=== PATIENT | female | born 1940 | race Caucasian/White ===

== ENCOUNTER 2022-06-15 13:41 | Observation (INO) | payer MEDICARE ==
[2022-06-15] MEDS ORDERED: KETOROLAC 15 MG/ML 1 ML VIAL IM STA (14:01)
--- NOTE | 2022-06-15 14:08 | ED ---
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 She is complaining of left hip and low back pain. Denies hitting her head or any other injuries. 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 Witnessed: no Place Fall Occurred: home Loss of Consciousness: none Prolonged Down Time?: no Symptoms Prior to Fall: none Location: back (lower), other (left hip) Severity scale (1-10): 6 Context: tripped/slipped Associated Symptoms: denies - Related Data Home Medications Medication Instructions Recorded Confirmed Alendronate Sodium [Fosamax] 35 mg PO FR 06/15/22 06/15/22 Aspirin EC [Ecotrin Low Dose] 81 mg PO HS 06/15/22 06/15/22 Cholecalciferol [Vitamin D3 (25 50 mcg PO HS 06/15/22 06/15/22 Mcg = 1000 Iu)] Cyanocobalamin (Vitamin B-12) 1,000 mcg PO HS 06/15/22 06/15/22 [Vitamin B-12] Dulaglutide [Trulicity] 3 mg SQ ARTHUR 06/15/22 06/15/22 Insulin Glargine,Hum.rec.anlog 10 units SQ HS 06/15/22 06/15/22 [Lantus Solostar Pen] Latanoprost/Pf [Latanoprost 0.005% 1 drop BOTH EYES HS 06/15/22 06/15/22 Eye Drop] Losartan Potassium [Cozaar] 50 mg PO DAILY 06/15/22 06/15/22 Metoprolol Succinate (ER) [Toprol 25 mg PO DAILY 06/15/22 06/15/22 Xl] Simvastatin [Zocor] 40 mg PO HS 06/15/22 06/15/22 Vit C/E/Zn/Coppr/Lutein/Zeaxan 1 cap PO BID 06/15/22 06/15/22 [Preservision Areds 2 Softgel] glipiZIDE [Glucotrol] 10 mg PO BID 06/15/22 06/15/22 ursodioL [Ursodiol] 500 mg PO HS 06/15/22 06/15/22 ursodioL [Ursodiol] 750 mg PO DAILY 06/15/22 06/15/22 Previous Rx's Medication Instructions Recorded Lidocaine 5% Patch [Lidoderm] 1 patch TOPICAL DAILY PRN 14 Days 06/15/22 #14 patch Allergies Allergy/AdvReac Type Severity Reaction Status Date / Time kiwi Allergy Itching Verified 06/15/22 17:15 ciprofloxacin [From Cipro] AdvReac Nausea Verified 06/15/22 17:15 Review of Systems ROS Statement: Those systems with pertinent positive or pertinent negative responses have been documented in the HPI. ROS Other: All systems not noted in ROS Statement are negative. Past Medical History Past Medical History: Diabetes Mellitus History of Any Multi-Drug Resistant Organisms: None Reported Past Surgical History: Tonsillectomy Smoking Status: Former smoker Past Alcohol Use History: None Reported Past Drug Use History: None Reported General Exam Limitations: no limitations General appearance: alert, in no apparent distress Head exam: Present: atraumatic, normocephalic, normal inspection Eye exam: Absent: scleral icterus, conjunctival injection, periorbital swelling, periorbital tenderness ENT exam: Present: mucous membranes moist Neck exam: Present: full ROM. Absent: tenderness, meningismus Respiratory exam: Absent: respiratory distress, accessory muscle use Cardiovascular Exam: Present: regular rate GI/Abdominal exam: Present: soft. Absent: distended, tenderness, guarding, rebound, rigid Extremities exam: Present: normal capillary refill. Absent: pedal edema, calf tenderness Left Hip exam: Present: tenderness. Absent: swelling, ecchymosis, deformity, crepitus, external rotation, internal rotation, shortening, pelvic stability Upper Leg exam: Present: full ROM. Absent: tenderness, swelling Knee exam: Present: full knee extension. Absent: tenderness, deformity Lower Leg exam: Present: full ROM. Absent: tenderness, swelling Foot/Toe exam: Absent: tenderness, swelling Neurovascular tendon exam: Present: no vascular compromise. Absent: abnormal cap refill, extremity cold to touch, pallor, foot drop Right Hip exam: Absent: tenderness Upper Leg exam: Absent: tenderness Knee exam: Present: ecchymosis, full knee extension. Absent: tenderness, swelling Lower Leg exam: Present: normal inspection. Absent: tenderness Ankle exam: Absent: tenderness Foot/Toe exam: Absent: tenderness Neurovascular tendon exam: Present: no vascular compromise. Absent: extremity cold to touch, pallor, foot drop Gait: observed and limited by pain Back exam: Present: tenderness, paraspinal tenderness (Lumbar sacral). Absent: CVA tenderness (R), CVA tenderness (L), vertebral tenderness, rash noted Neurological exam: Present: alert, oriented X3 Psychiatric exam: Present: normal affect, normal mood Skin exam: Present: warm, dry, abrasion (First 3 fingers of right hand, small abrasions) Course Vital Signs 06/15/22 06/15/22 13:45 16:31 Temperature 97 F L Pulse Rate 70 76 Respiratory 18 18 Rate Blood Pressure 153/77 173/75 O2 Sat by Pulse 94 L 94 L Oximetry Medical Decision Making - Medical Decision Making Patient had a ground level fall at home today landing on her left hip. Denies any other injuries. Did not hit her head or lose consciousness. She is not on blood thinners. X-ray of the left hip and pelvis shows no acute fracture or dislocation. X-ray of the lumbar sacral spine shows no acute fracture or dislocation. Vertebral body height and disc space heights are within normal limits. EKG shows sinus rhythm Patient tried to ambulate and states increased pain with weight bearing. Complaining of pain in the left groin and hip therefore CT was ordered. CT performed which shows a mildly displaced comminuted fracture of the left inferior pubic ramus Case discussed with Dr. Yee who is agreeable to admitting patient. Medicine will be placed on consult. Patient and daughter Zoraida agreeable to this plan of care. Case discussed with Dr. Contreras - EKG Data EKG shows normal: sinus rhythm (Ventricular rate 72, IL interval 0.181, QRS 0.97, QTC 0.450; sinus rhythm; no t wave inversion) Disposition Clinical Impression: Fall, Inferior pubic ramus fracture Disposition: ADMITTED IP TO THIS HOSP Additional Instructions: Use Tylenol as needed for any pain, you can also uses Lidoderm patches as prescribed. Follow-up with the primary care doctor next week. Return to emergency room if any new or concerning symptoms. Prescriptions: Lidocaine 5% Patch [Lidoderm] 1 patch TOPICAL DAILY PRN 14 Days #14 patch PRN Reason: Pain Is patient prescribed a controlled substance at d/c from ED?: No Referrals: Nonstaff,Physician [REFERRING] - 1-2 days Decision Time: 17:01
--- NOTE | 2022-06-15 14:58 | XR ---
EXAMINATION TYPE: XR lumbar spine 2 or 3V DATE OF EXAM: 06/15/2022 CLINICAL HISTORY: Fall injury with pain TECHNIQUE: Frontal and lateral images of the lumbar spine are obtained. COMPARISON: None FINDINGS: There are 5 lumbar type vertebral bodies identified. The lumbar spine shows slight grade 1 anterolisthesis of L4 on L5 without evidence of acute fracture or dislocation. Vertebral body heigh ts and disk space heights are within normal limits. Moderate overlying arterial vascular calcificatio n is present. IMPRESSION: No acute fracture or dislocation is seen in the lumbar spine.
--- NOTE | 2022-06-15 15:00 | XR ---
EXAMINATION TYPE: XR Hip LT and AP Pelvis DATE OF EXAM: 06/15/2022 COMPARISON: NONE HISTORY: Fall injury with pelvic and left hip pain. TECHNIQUE: A single AP view of the pelvis is obtained. Two views of the left hip are obtained. FINDINGS: There is no acute fracture/dislocation evident in the pelvis. There is moderate axial join t space loss in the bilateral hips. Sacroiliac joints are preserved. No abnormal widening of the pubi c symphysis, there is bony prominence could reflect atelectatic old fracture involving the left pubic bone as no lucency identified at this level. Scattered bilateral pelvic phleboliths are seen. Two views of left hip show no acute fracture or dislocation. No focal lytic or sclerotic lesion seen in the proximal left femur. The overlying soft tissue is unremarkable. IMPRESSION: There is no acute fracture or dislocation in the pelvis or left hip.
[2022-06-15] MEDS ORDERED: HYDROcodone/APAP 5-325MG 1 EACH TAB PO STA (15:57)
[2022-06-15] MEDS: LIDOCAINE 5% PATCH TOPICAL SCH (16:25)
--- NOTE | 2022-06-15 16:44 | CT ---
EXAMINATION TYPE: CT pelvis wo con, CT hip LT wo con CT DLP: 511.1 mGycm, Automated exposure control for dose reduction was used. DATE OF EXAM: 06/15/2022 4:29 PM COMPARISON: Left hip and pelvic radiographs of the same date. CLINICAL INDICATION:Female, 82 years old with history of pain; fall left hip pian TECHNIQUE: Standard CT of the pelvis and left hip without IV or oral contrast. Lack of IV or oral c ontrast limits evaluation of solid and hollow organ viscera. Coronal and sagittal reformats were perf ormed. FINDINGS: PELVIS BLADDER: Unremarkable REPRODUCTIVE: Unremarkable. BOWEL: Few scattered colonic diverticula without evidence for acute diverticulitis. No focal wall thi ckening. No evidence of bowel obstruction. PERITONEUM: No evidence of pneumoperitoneum or free fluid. VASCULATURE: No evidence of aortic aneurysm. Mild atherosclerotic ossification of the aorta and its b ranches. MUSCULOSKELETAL: Mildly displaced comminuted fracture of the left inferior pubic ramus. No evidence f or dislocation. No joint effusion. SI joints. Tach. LYMPH NODES: No gross evidence for lymphadenopathy. SOFT TISSUE/ABDOMINAL WALL: Unremarkable IMPRESSION: Acute mildly displaced comminuted fracture of the left inferior pubic ramus.
[2022-06-15] MEDS ORDERED: ACETAMINOPHEN TAB 325 MG TAB PO PRN (17:06)
[2022-06-15] MEDS ORDERED: NALOXONE 0.4 MG/ML 1 ML VIAL IV PRN (17:06)
--- NOTE | 2022-06-15 17:14 | P.PN ---
Progress Note - Text Progress Note Date: 06/15/22 Spoke with ED, per report 82 yo female sustained ffs at home. Full consult pending. Can not reasonably ambulate due to pubic rami fracture. Images reviewed CT shows left inf pubic rami fracture with min displacement. Will admit for obs and pain control. Medicine to consult. PT/OT. Start DVT ppx. SCDs, TEDs.
[2022-06-15] MEDS: ASPIRIN 81 MG PO SCH (22:24)
[2022-06-15] MEDS: CHOLECALCIFEROL 25 MCG (1000 IU) TABLET PO SCH (22:24)
[2022-06-15] MEDS: ATORVASTATIN 20 MG TAB PO SCH (22:24)
[2022-06-15] MEDS: INSULIN DETEMIR (LEVEMIR) 100 UNIT/ML SYR SQ SCH (22:25)
[2022-06-15] MEDS: LATANOPROST 0.005% OPHTH DROPS 2.5 ML BTL BOTH EYES SCH (22:25)
[2022-06-15] MEDS: CYANOCOBALAMIN 500 MCG TAB PO SCH (22:25)
[2022-06-15] MEDS: glipiZIDE 10 MG TAB PO SCH (22:39)
[2022-06-15] MEDS: ursodioL 300 MG CAP PO SCH (22:44)
[2022-06-15 22:52] LABS: Glucose,Whole Blood 165 mg/dL (70-110)
[2022-06-15] MEDS: traMADol 50 MG TAB PO PRN (22:52)
[2022-06-16 07:09] LABS: Glucose,Whole Blood 197 mg/dL (70-110)
[2022-06-16] MEDS: traMADol 50 MG TAB PO PRN ×2 (08:55→14:15)
[2022-06-16] MEDS: ursodioL 300 MG CAP PO SCH ×2 (08:58→20:22)
[2022-06-16] MEDS: LOSARTAN 50 MG TAB PO SCH (08:58)
[2022-06-16] MEDS: METOPROLOL SUCCINATE (ER) 25 MG TAB.ER.24H PO SCH (08:59)
[2022-06-16] MEDS: glipiZIDE 10 MG TAB PO SCH ×2 (08:59→20:22)
[2022-06-16] MEDS: VIT A,C & E-LUTEIN-MINERALS 1 EACH TAB PO SCH (08:59)
[2022-06-16] MEDS ORDERED: DEXTROSE 50% SYRINGE 50 ML IVP PRN ×2 (09:37)
[2022-06-16 09:49] LABS: HCT 37.5 % (34.0-46.0); HGB 11.9 gm/dL (11.4-16.0); Hypochromasia Slight; MCH 29.7 pg (25.0-35.0); MCHC 31.9 g/dL (31.0-37.0); Mean Platelet Volume 10.5; Platelet Count 137 k/uL (150-450); RBC 4.03 m/uL (3.80-5.40); RDW 13.3 % (11.5-15.5); WBC 7.4 k/uL (3.8-10.6)
[2022-06-16 10:03] LABS: ALT 28 U/L (4-34); AST 32 U/L (14-36); African American GFR (CKD) 39 (>60 ml/min/1.73 sqM); Albumin 3.5 g/dL (3.5-5.0); Albumin/Globulin Ratio 1.4; Alkaline Phosphatase 117 U/L (38-126); Anion Gap 11 mmol/L; Blood Urea Nitrogen 37 mg/dL (7-17); Carbon Dioxide 19 mmol/L (22-30); Chloride 106 mmol/L (98-107); Globulin 2.5 g/dL; Glucose 295 mg/dL (74-99); Magnesium 1.8 mg/dL (1.6-2.3); Non-African American GFR(CKD) 33 (>60 ml/min/1.73 sqM); Phosphorus 4.5 mg/dL (2.5-4.5); Potassium 4.3 mmol/L (3.5-5.1); Sodium 136 mmol/L (137-145); Total Bilirubin 1.6 mg/dL (0.2-1.3)
[2022-06-16] MEDS: LIDOCAINE 5% PATCH TOPICAL SCH ×2 (10:35→12:19)
--- NOTE | 2022-06-16 11:33 | P.CONS ---
History of Present Illness - Reason for Consult Consult date: 06/16/22 (jay delayed charting seen at 0915) DM 2 Requesting physician: Navin Yee - Chief Complaint fall - History of Present Illness Patient is an 82 yo CF with hx of bells palsy, DM, HTN, and HLD who presented after a trip and fall at home with inability to get-up afterward.CT in the ED demonstrated a displaced comminuted fracture of the left inferior pubic ramus. Patient seen and examined at bedside. 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 She denies any light headedness/dizziness, chest pain, or syncopal event. She has been in her normal state of health. Her only medication change recently was that her actos was recently discontinued as her sugars have been well controlled. D/W patient alerting nursing if pain medications are not strong enough. Has a walker at home 4-wheeled but does not use it at this time. Pertinent positives and negatives as discussed in HPI, a complete review of systems was performed and all other systems are negative. Vital signs reviewed General: nontoxic, no distress, appears at stated age Derm: warm, dry Head: atraumatic, normocephalic, symmetric Eyes: EOMI, no lid lag, anicteric sclera, pupils equal round reactive to light ENT: Nose and ears atraumatic, no thrush, no pharyngeal erythema Neck: No thyromegaly, no cervical lymphadenopathy, trachea midline, supple Mouth: no lip lesion, mucus membranes moist Cardiovascular: S1S2 reg, no murmur, positive posterior tibial pulse bilateral, no edema, capillary refill less than 2 seconds Lungs: clear to auscultation bilateral, no rhonchi, no rales, no wheeze, no accessory muscle use Abdominal: soft, nontender to palpation, no guarding, no appreciable organomegaly, normal bowel sounds Ext: no gross muscle atrophy, muscle strength 5 out of 5 in all 4 extremities, no contractures Neuro: CN II-XII grossly intact, light touch intact all 4 extremities, finger to nose within normal limits, Psych: Alert, oriented, appropriate affect Assessment/Plan: Left inferior pubic ramus fracture - d/w ortho and plan is for conservative treatment - pain control - PT/OT - Fall precuations DM 2 - levemir - glipizide - SSI - follow accucheck HTN - cozaar and metoprolol - follow BP HLD - statin Obesity with BMI 34.8 - structured outpatient weight loss Thank you for allowing us to participate in the care of this pleasant patient. Do not hesitate to contact us with questions. Someone can be reached from the [facility] hospitalist group all hours of the day at [phone] or via [employer]. Past Medical History Past Medical History: Diabetes Mellitus, Hyperlipidemia, Hypertension Additional Past Medical History / Comment(s): macular degeneration, gallstones. Garwood Palsy History of Any Multi-Drug Resistant Organisms: None Reported Past Surgical History: Tonsillectomy Additional Past Surgical History / Comment(s): corneal transplant, liver biopsy for elevated enzynmes Past Anesthesia/Blood Transfusion Reactions: No Reported Reaction Smoking Status: Former smoker Past Alcohol Use History: None Reported Past Drug Use History: None Reported - Past Family History Mother Additional Family Medical History / Comment(s): Medications and Allergies Home Medications Medication Instructions Recorded Confirmed Type Alendronate Sodium [Fosamax] 35 mg PO FR 06/15/22 06/15/22 History Aspirin EC [Ecotrin Low Dose] 81 mg PO HS 06/15/22 06/15/22 History Cholecalciferol [Vitamin D3 (25 50 mcg PO HS 06/15/22 06/15/22 History Mcg = 1000 Iu)] Cyanocobalamin (Vitamin B-12) 1,000 mcg PO HS 06/15/22 06/15/22 History [Vitamin B-12] Dulaglutide [Trulicity] 3 mg SQ ARTHUR 06/15/22 06/15/22 History Insulin Glargine,Hum.rec.anlog 10 units SQ HS 06/15/22 06/15/22 History [Lantus Solostar Pen] Latanoprost/Pf [Latanoprost 0.005% 1 drop BOTH EYES HS 06/15/22 06/15/22 History Eye Drop] Lidocaine 5% Patch [Lidoderm] 1 patch TOPICAL DAILY PRN 14 Days 06/15/22 Rx #14 patch Losartan Potassium [Cozaar] 50 mg PO DAILY 06/15/22 06/15/22 History Metoprolol Succinate (ER) [Toprol 25 mg PO DAILY 06/15/22 06/15/22 History Xl] Simvastatin [Zocor] 40 mg PO HS 06/15/22 06/15/22 History Vit C/E/Zn/Coppr/Lutein/Zeaxan 1 cap PO BID 06/15/22 06/15/22 History [Preservision Areds 2 Softgel] glipiZIDE [Glucotrol] 10 mg PO BID 06/15/22 06/15/22 History ursodioL [Ursodiol] 500 mg PO HS 06/15/22 06/15/22 History ursodioL [Ursodiol] 750 mg PO DAILY 06/15/22 06/15/22 History Allergies Allergy/AdvReac Type Severity Reaction Status Date / Time kiwi Allergy Itching Verified 06/15/22 17:15 ciprofloxacin [From Cipro] AdvReac Nausea Verified 06/15/22 17:15 Physical Exam Osteopathic Statement: *. No significant issues noted on an osteopathic structural exam other than those noted in the History and Physical/Consult. Vitals: Vital Signs Temp Pulse Pulse Resp BP BP Pulse Ox 06/16/22 07:32 98.0 F 78 17 143/77 06/16/22 06:27 98.8 F 90 20 145/77 91 L 06/15/22 22:00 73 16 06/15/22 20:02 80 16 170/62 94 L 06/15/22 20:00 98.7 F 73 18 163/78 93 L 06/15/22 16:31 76 18 173/75 94 L 06/15/22 13:45 97 F L 70 18 153/77 94 L Intake and Output 06/15/22 06/16/22 06/16/22 22:59 06:59 14:59 Intake Total 0 Balance 0 Intake: Oral 0 Other: Voiding Method External Catheter Diaper External Catheter # Voids 0 Weight 86.183 kg Results CBC & Chem 7: 06/16/22 09:00 06/16/22 09:00 Labs: Abnormal Lab Results - Last 24 Hours (Table) 06/15/22 06/16/22 06/16/22 Range/Units 22:32 07:08 09:00 Plt Count 137 L (150-450) k/uL Sodium (137-145) mmol/L Carbon Dioxide (22-30) mmol/L BUN (7-17) mg/dL Creatinine (0.52-1.04) mg/dL Glucose (74-99) mg/dL POC Glucose (mg/dL) 165 H 197 H (70-110) mg/dL Total Bilirubin (0.2-1.3) mg/dL Total Protein (6.3-8.2) g/dL 06/16/22 Range/Units 09:00 Plt Count (150-450) k/uL Sodium 136 L (137-145) mmol/L Carbon Dioxide 19 L (22-30) mmol/L BUN 37 H (7-17) mg/dL Creatinine 1.47 H (0.52-1.04) mg/dL Glucose 295 H (74-99) mg/dL POC Glucose (mg/dL) (70-110) mg/dL Total Bilirubin 1.6 H (0.2-1.3) mg/dL Total Protein 6.0 L (6.3-8.2) g/dL
[2022-06-16 11:59] LABS: Glucose,Whole Blood 294 mg/dL (70-110)
--- NOTE | 2022-06-16 12:15 | P.HPOR ---
History of Present Illness H&P Date: 06/16/22 Chief Complaint: Left groin pain Patient is an 82-year-old female who presented the emergency department at [facility] yesterday with a chief complaint of left groin pain/left leg pain status post fall at home. 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 Patient believes she landed on her left hip. Patient seen at bedside this morning and states she has pain in the left groin as well as in the left SI region. Patient denies any radiation of pain. Dominique gibson currently rates pain as 8/10. Patient says she has not bear much weight on the left lower extremity since the fall at home. Patient denies any. Orthopedic surgical history. Patient denies dizziness before the fall. Patient denies losing consciousness/finger head during the fall. CT of the pelvis performed yesterday demonstrates left inferior pubic rami fracture. Negative for any fractures. Patient denies chest pain, fever, shortness of breath, nausea, vomiting, change in vision, loss of bowel/bladder control. Past Medical History Past Medical History: Diabetes Mellitus, Hyperlipidemia, Hypertension Additional Past Medical History / Comment(s): macular degeneration, gallstones History of Any Multi-Drug Resistant Organisms: None Reported Past Surgical History: Tonsillectomy Additional Past Surgical History / Comment(s): corneal transplant, liver biopsy for elevated enzynmes Past Anesthesia/Blood Transfusion Reactions: No Reported Reaction Smoking Status: Former smoker Past Alcohol Use History: None Reported Past Drug Use History: None Reported - Past Family History Mother Additional Family Medical History / Comment(s): Medications and Allergies Home Medications Medication Instructions Recorded Confirmed Type Alendronate Sodium [Fosamax] 35 mg PO FR 06/15/22 06/15/22 History Cholecalciferol [Vitamin D3 (25 50 mcg PO HS 06/15/22 06/15/22 History Mcg = 1000 Iu)] Cyanocobalamin (Vitamin B-12) 1,000 mcg PO HS 06/15/22 06/15/22 History [Vitamin B-12] Dulaglutide [Trulicity] 3 mg SQ ARTHUR 06/15/22 06/15/22 History Insulin Glargine,Hum.rec.anlog 10 units SQ HS 06/15/22 06/15/22 History [Lantus Solostar Pen] Latanoprost/Pf [Latanoprost 0.005% 1 drop BOTH EYES HS 06/15/22 06/15/22 History Eye Drop] Lidocaine 5% Patch [Lidoderm] 1 patch TOPICAL DAILY PRN 14 Days 06/15/22 Rx #14 patch Losartan Potassium [Cozaar] 50 mg PO DAILY 06/15/22 06/15/22 History Metoprolol Succinate (ER) [Toprol 25 mg PO DAILY 06/15/22 06/15/22 History Xl] Simvastatin [Zocor] 40 mg PO HS 06/15/22 06/15/22 History Vit C/E/Zn/Coppr/Lutein/Zeaxan 1 cap PO BID 06/15/22 06/15/22 History [Preservision Areds 2 Softgel] glipiZIDE [Glucotrol] 10 mg PO BID 06/15/22 06/15/22 History ursodioL [Ursodiol] 500 mg PO HS 06/15/22 06/15/22 History ursodioL [Ursodiol] 750 mg PO DAILY 06/15/22 06/15/22 History Aspirin 325 mg PO DAILY #21 tab 06/16/22 Rx Sennosides/Docusate Sodium [Senna 1 each PO DAILY #20 tablet 06/16/22 Rx Plus 8.6-50 mg Tablet] traMADol HCl [Ultram] 50 mg PO Q6H PRN #24 tab 06/16/22 Rx Allergies Allergy/AdvReac Type Severity Reaction Status Date / Time kiwi Allergy Itching Verified 06/15/22 17:15 ciprofloxacin [From Cipro] AdvReac Nausea Verified 06/15/22 17:15 Physical Examination Osteopathic Statement: *. No significant issues noted on an osteopathic structural exam other than those noted in the History and Physical/Consult. Inspection: Negative for any open fractures, ulcers. Some ecchymosis present surrounding the left hip. Negative for erythema. Sensation: Sensation is equal, symmetric, bilaterally intact throughout the upper and lower extremities. Palpation: Diffuse TTP surrounding left hip, but mostly in left SI region and left groin. NTTP throughout rest of exam. Range of motion: Patient has full range of motion bilateral upper extremities. Patient has full range of motion in right lower extremity. Patient does have limited range of motion left lower extremity on exam due to pain. Limited range of motion of left lower extremity is in hip flexion/extension and knee flexion/extension. Patient does have full range of motion in left lower extremity ankle dorsi/plantar flexion. Motor: 5/5 in all major motor groups in bilateral upper extremities and right lower extremity. 4/5 in resisted left hip flexion/extension in left knee flexion/extension due to pain. 5/5 in all other major motor groups Special tests: Negative Homans bilaterally; negative Timmy bilaterally; negative clonus bilaterally Neurovascular status: Radial pulses intact, 2+ bilaterally. Dorsalis pedis pulse palpable bilaterally. Cap refill under 3 seconds in digits of the upper extremities. Results - Labs Labs: Abnormal Lab Results - Last 24 Hours (Table) 06/15/22 06/16/22 06/16/22 Range/Units 22:32 07:08 09:00 Plt Count 137 L (150-450) k/uL Sodium (137-145) mmol/L Carbon Dioxide (22-30) mmol/L BUN (7-17) mg/dL Creatinine (0.52-1.04) mg/dL Glucose (74-99) mg/dL POC Glucose (mg/dL) 165 H 197 H (70-110) mg/dL Total Bilirubin (0.2-1.3) mg/dL Total Protein (6.3-8.2) g/dL 06/16/22 Range/Units 09:00 Plt Count (150-450) k/uL Sodium 136 L (137-145) mmol/L Carbon Dioxide 19 L (22-30) mmol/L BUN 37 H (7-17) mg/dL Creatinine 1.47 H (0.52-1.04) mg/dL Glucose 295 H (74-99) mg/dL POC Glucose (mg/dL) (70-110) mg/dL Total Bilirubin 1.6 H (0.2-1.3) mg/dL Total Protein 6.0 L (6.3-8.2) g/dL H & H 06/16/22 Range/Units 09:00 Hgb 11.9 (11.4-16.0) gm/dL Hct 37.5 (34.0-46.0) % Result Diagrams: 06/16/22 09:00 06/16/22 09:00 Assessment and Plan Assessment: 1. Left inferior pubic rami fracture 2. Status post fall Patient seen and examined, I reviewed the note, discussed the case with the PA first hand and agree with the assessment and plan of SMITA Deng. Please see my notes below for any additional recommendations. Plan: 1. Left inferior pubic rami fracture - CT pelvis performed yesterday did demonstrate left inferior pubic rami fracture. Negative for any hip fracture. Patient stable at bedside this morning. Patient is to be weightbearing as tolerated with walker. At this time we do not recommend any orthopedic surgical intervention. We do recommend conservative measures at this time via the use of pain medication. Patient is stable from an orthopedic standpoint for discharge to rehab. We'll continue to follow patient while in hospital. 2. Appreciate medical management 3. Pain management - tramadol; tylenol 4. DVT prophylaxis - aspirin 5. GI prophylaxis - senna 6. PT/OT - weightbearing as tolerated with walker 7. Discharge planning - plan for discharge to rehab today versus tomorrow, pending authorization Time with Patient: Less than 30
[2022-06-16] MEDS: INSULIN ASPART (NovoLOG) 100 UNIT/ML VIAL SQ SCH ×3 (12:18→20:21)
--- NOTE | 2022-06-16 13:14 | P.DS ---
Providers Date of admission: 06/15/22 17:09 Expected date of discharge: 06/16/22 Attending physician: Navin Yee DO Consults: 06/15/22 17:06 Consult Physician Routine Consulting Provider: Marisa Deras Consult Reason/Comments: Medical management, Fall, inferior pubic rami fracture Do you want consulting provider notified?: Yes, Notify in am Primary care physician: Viviana Crawford MD Hospital Course: Date of admission: 06/15/2022 Date of discharge: 06/16/2022 Admission diagnosis: Left inferior pubic rami fracture Discharge diagnosis: Same Attending physician: Dr. Yee Surgical procedures: None Brief history: Patient is a 82-year-old female with a history of left inferior pubic fracture status post fall. Patient treated with conservative measures. No surgery Hospital course: Patient's orthopeidc and medical care was provided daily. Patient had daily laboratory tests performed for evaluation of overall blood counts. Patient had daily physical therapy to include strengthening range of motion as well as education with walker ambulation. Patient was treated with aspirin for their DVT prophylaxis during their stay. Patient was noted to have a relatively uneventful postoperative course. Patient reported satisfactory pain control with oral pain medications by postoperative day . Patient showed satisfactory progress with physical therapy. Patient moved steadily through the program and had no difficulty meeting the goals. Given patient's otherwise satisfactory course and having met physical therapy goals, plan is to discharge patient to rehab Discharge condition/disposition: Patient will be discharged to rehab in stable condition. Discharge medications: Instructions are given on resumption of patient's normal daily medications per primary care recommendation, in addition patient will be prescribed tramadol; aspirin 325 mg daily 3 weeks; senna. Orthopedic Discharge Instructions: 1. Weight-bear as tolerated with walker / cane until follow-up. 2. Ice when necessary. Do not exceed 20 minutes per hour with ice pack. 3. Pain meds and anticoagulants per prescription. 4. Pain medication has potential to cause constipation. Increase oral fluid and fiber intake. Contact primary care provider if you have not had a bowel movement within 48 hours after discharge. 5. No anti-inflammatory medication until discussed at first post operative visit, this including Motrin, Aleve, Mobic, Diclofenac. 6. Follow up in office at [address] Navin Yee. 7. Follow up with your primary care doctor 7-10 days after discharge. 8. Contact [facility] with any questions, . Assessment: Left inferior pubic rami fracture Patient Condition at Discharge: Good Plan - Discharge Summary New Discharge Prescriptions: New Lidocaine 5% Patch [Lidoderm] 1 patch TOPICAL DAILY PRN 14 Days #14 patch PRN Reason: Pain traMADol HCl [Ultram] 50 mg PO Q6H PRN #24 tab PRN Reason: Pain Aspirin 325 mg PO DAILY #21 tab Sennosides/Docusate Sodium [Senna Plus 8.6-50 mg Tablet] 1 each PO DAILY #20 tablet Discontinued Aspirin EC [Ecotrin Low Dose] 81 mg PO HS No Action ursodioL [Ursodiol] 500 mg PO HS ursodioL [Ursodiol] 750 mg PO DAILY Dulaglutide [Trulicity] 3 mg SQ ARTHUR Simvastatin [Zocor] 40 mg PO HS Latanoprost/Pf [Latanoprost 0.005% Eye Drop] 1 drop BOTH EYES HS Insulin Glargine,Hum.rec.anlog [Lantus Solostar Pen] 10 units SQ HS Cyanocobalamin (Vitamin B-12) [Vitamin B-12] 1,000 mcg PO HS Cholecalciferol [Vitamin D3 (25 Mcg = 1000 Iu)] 50 mcg PO HS glipiZIDE [Glucotrol] 10 mg PO BID Metoprolol Succinate (ER) [Toprol Xl] 25 mg PO DAILY Losartan Potassium [Cozaar] 50 mg PO DAILY Alendronate Sodium [Fosamax] 35 mg PO FR Vit C/E/Zn/Coppr/Lutein/Zeaxan [Preservision Areds 2 Softgel] 1 cap PO BID Discharge Medication List Alendronate Sodium [Fosamax] 35 mg PO FR 06/15/22 [History] Cholecalciferol [Vitamin D3 (25 Mcg = 1000 Iu)] 50 mcg PO HS 06/15/22 [History] Cyanocobalamin (Vitamin B-12) [Vitamin B-12] 1,000 mcg PO HS 06/15/22 [History] Dulaglutide [Trulicity] 3 mg SQ ARTHUR 06/15/22 [History] Insulin Glargine,Hum.rec.anlog [Lantus Solostar Pen] 10 units SQ HS 06/15/22 [History] Latanoprost/Pf [Latanoprost 0.005% Eye Drop] 1 drop BOTH EYES HS 06/15/22 [History] Lidocaine 5% Patch [Lidoderm] 1 patch TOPICAL DAILY PRN 14 Days #14 patch [Rx] Losartan Potassium [Cozaar] 50 mg PO DAILY 06/15/22 [History] Metoprolol Succinate (ER) [Toprol Xl] 25 mg PO DAILY 06/15/22 [History] Simvastatin [Zocor] 40 mg PO HS 06/15/22 [History] Vit C/E/Zn/Coppr/Lutein/Zeaxan [Preservision Areds 2 Softgel] 1 cap PO BID 06/15/22 [History] glipiZIDE [Glucotrol] 10 mg PO BID 06/15/22 [History] ursodioL [Ursodiol] 500 mg PO HS 06/15/22 [History] ursodioL [Ursodiol] 750 mg PO DAILY 06/15/22 [History] Aspirin 325 mg PO DAILY #21 tab 06/16/22 [Rx] Sennosides/Docusate Sodium [Senna Plus 8.6-50 mg Tablet] 1 each PO DAILY #20 tablet 06/16/22 [Rx] traMADol HCl [Ultram] 50 mg PO Q6H PRN #24 tab 06/16/22 [Rx] Follow up Appointment(s)/Referral(s): Nonstaff,Physician [REFERRING] - 1-2 days Navin Yee DO [Doctor of Osteopathic Medicine] - 2 Weeks Activity/Diet/Wound Care/Special Instructions: Use Tylenol as needed for any pain, you can also uses Lidoderm patches as prescribed. Follow-up with the primary care doctor next week. Return to emergency room if any new or concerning symptoms. Orthopedic Discharge Instructions: 1. Weight-bear as tolerated with walker / cane until follow-up. 2. Ice when necessary. Do not exceed 20 minutes per hour with ice pack. 3. Pain meds and anticoagulants per prescription. 4. Pain medication has potential to cause constipation. Increase oral fluid and fiber intake. Contact primary care provider if you have not had a bowel movement within 48 hours after discharge. 5. No anti-inflammatory medication until discussed at first post operative visit, this including Motrin, Aleve, Mobic, Diclofenac. 6. Follow up in office at [address] Navin Yee. 7. Follow up with your primary care doctor 7-10 days after discharge. 8. Contact [facility] with any questions, . Discharge Disposition: TRANSFER TO SNF/ECF
[2022-06-16 17:15] LABS: Glucose,Whole Blood 58 mg/dL (70-110)
[2022-06-16 17:34] LABS: Glucose,Whole Blood 242 mg/dL (70-110)
[2022-06-16 20:03] LABS: Glucose,Whole Blood 345 mg/dL (70-110)
[2022-06-16 20:13] VITALS: RESP 16
[2022-06-16] MEDS: INSULIN DETEMIR (LEVEMIR) 100 UNIT/ML SYR SQ SCH (20:21)
[2022-06-16] MEDS: ATORVASTATIN 20 MG TAB PO SCH (20:22)
[2022-06-16] MEDS: CYANOCOBALAMIN 500 MCG TAB PO SCH (20:22)
[2022-06-16] MEDS: CHOLECALCIFEROL 25 MCG (1000 IU) TABLET PO SCH (20:22)
[2022-06-16] MEDS: ASPIRIN 81 MG PO SCH (20:23)
[2022-06-16] MEDS: LATANOPROST 0.005% OPHTH DROPS 2.5 ML BTL BOTH EYES SCH (20:23)
[2022-06-17 07:04] LABS: Glucose,Whole Blood 166 mg/dL (70-110)
[2022-06-17] MEDS: ursodioL 300 MG CAP PO SCH (08:06)
[2022-06-17] MEDS: VIT A,C & E-LUTEIN-MINERALS 1 EACH TAB PO SCH (08:06)
[2022-06-17] MEDS: METOPROLOL SUCCINATE (ER) 25 MG TAB.ER.24H PO SCH (08:07)
[2022-06-17] MEDS: LOSARTAN 50 MG TAB PO SCH (08:07)
[2022-06-17] MEDS: LIDOCAINE 5% PATCH TOPICAL SCH (08:07)
[2022-06-17] MEDS: glipiZIDE 10 MG TAB PO SCH (08:07)
[2022-06-17] MEDS: INSULIN ASPART (NovoLOG) 100 UNIT/ML VIAL SQ SCH ×2 (08:10→13:06)
[2022-06-17] MEDS ORDERED: INFLUENZA VACC HIGH-DOSE (65+) 240 MCG/0.7 ML SYRINGE IM ONE (08:13)
[2022-06-17] MEDS: traMADol 50 MG TAB PO PRN (09:30)
[2022-06-17 11:12] LABS: Glucose,Whole Blood 223 mg/dL (70-110)
[2022-06-17 11:50] VITALS: BP 118/74; PULSE 78; TEMP 98.2
--- NOTE | 2022-06-17 15:25 | P.DS ---
Providers Date of admission: 06/15/22 17:09 Expected date of discharge: 06/17/22 Attending physician: Marisa Deras DO Consults: 06/15/22 17:06 Consult Physician Routine Consulting Provider: Marisa Deras Consult Reason/Comments: Medical management, Fall, inferior pubic rami fracture Do you want consulting provider notified?: Yes, Notify in am Primary care physician: Viviana Crawford MD Hospital Course: The following hospital course is copy/forwarded from yesterday's discharge summary. Patient's discharge was delayed until 06/17 due to placement issues. Patient had no acute events overnight. Attending was changed to myself yesterday due to delay of discharge. Gen: awake, alert HEENT: normocephalic, atraumatic, good hearing acuity, moist mucous membranes Resp: good air exchange, breathing comfortably with no accessory muscle use CVS: good distal perfusion x 4, GI: soft, NTTP, ND : no SPT, no CVAT, butcher catheter not present MSK: no pitting edema, no clubbing Neuro: non-focal, moving all extremities Psych: cooperative, euthymic mood Assessment/Plan: Patient is cleared for discharge from medicine and orthopedic surgery - see below for more details regarding hospital course. Date of admission: 06/15/2022 Date of discharge: 06/16/2022 Admission diagnosis: Left inferior pubic rami fracture Discharge diagnosis: Same Attending physician: Dr. Yee Surgical procedures: None Brief history: Patient is a 82-year-old female with a history of left inferior pubic fracture status post fall. Patient treated with conservative measures. No surgery Hospital course: Patient's orthopeidc and medical care was provided daily. Patient had daily laboratory tests performed for evaluation of overall blood counts. Patient had daily physical therapy to include strengthening range of motion as well as education with walker ambulation. Patient was treated with aspirin for their DVT prophylaxis during their stay. Patient was noted to have a relatively uneventful postoperative course. Patient reported satisfactory pain control with oral pain medications by postoperative day . Patient showed satisfactory progress with physical therapy. Patient moved steadily through the program and had no difficulty meeting the goals. Given patient's otherwise satisfactory course and having met physical therapy goals, plan is to discharge patient to rehab Discharge condition/disposition: Patient will be discharged to rehab in stable condition. Discharge medications: Instructions are given on resumption of patient's normal daily medications per primary care recommendation, in addition patient will be prescribed tramadol; aspirin 325 mg daily 3 weeks; senna. Orthopedic Discharge Instructions: 1. Weight-bear as tolerated with walker / cane until follow-up. 2. Ice when necessary. Do not exceed 20 minutes per hour with ice pack. 3. Pain meds and anticoagulants per prescription. 4. Pain medication has potential to cause constipation. Increase oral fluid and fiber intake. Contact primary care provider if you have not had a bowel movement within 48 hours after discharge. 5. No anti-inflammatory medication until discussed at first post operative visit, this including Motrin, Aleve, Mobic, Diclofenac. 6. Follow up in office at [address] Navin Yee. 7. Follow up with your primary care doctor 7-10 days after discharge. 8. Contact [facility] with any questions, . Assessment: Left inferior pubic rami fracture Patient Condition at Discharge: Good Plan - Discharge Summary New Discharge Prescriptions: New Lidocaine 5% Patch [Lidoderm] 1 patch TOPICAL DAILY PRN 14 Days #14 patch PRN Reason: Pain traMADol HCl [Ultram] 50 mg PO Q6H PRN #24 tab PRN Reason: Pain Sennosides/Docusate Sodium [Senna Plus 8.6-50 mg Tablet] 1 each PO DAILY #20 tablet Acetaminophen Tab [Tylenol] 650 mg PO Q6HR PRN tab PRN Reason: Mild Pain Or Fever > 100.5 Aspirin 81 mg PO HS tab Continue ursodioL [Ursodiol] 500 mg PO HS ursodioL [Ursodiol] 750 mg PO DAILY Dulaglutide [Trulicity] 3 mg SQ ARTHUR Simvastatin [Zocor] 40 mg PO HS Latanoprost/Pf [Latanoprost 0.005% Eye Drop] 1 drop BOTH EYES HS Cyanocobalamin (Vitamin B-12) [Vitamin B-12] 1,000 mcg PO HS Cholecalciferol [Vitamin D3 (25 Mcg = 1000 Iu)] 50 mcg PO HS glipiZIDE [Glucotrol] 10 mg PO BID Metoprolol Succinate (ER) [Toprol XL] 25 mg PO DAILY Losartan Potassium [Cozaar] 50 mg PO DAILY Alendronate Sodium [Fosamax] 35 mg PO FR Vit C/E/Zn/Coppr/Lutein/Zeaxan [Preservision Areds 2 Softgel] 1 cap PO BID Discontinued Insulin Glargine,Hum.rec.anlog [Lantus Solostar Pen] 10 units SQ HS Aspirin EC [Ecotrin Low Dose] 81 mg PO HS Discharge Medication List Alendronate Sodium [Fosamax] 35 mg PO FR 06/15/22 [History] Cholecalciferol [Vitamin D3 (25 Mcg = 1000 Iu)] 50 mcg PO HS 06/15/22 [History] Cyanocobalamin (Vitamin B-12) [Vitamin B-12] 1,000 mcg PO HS 06/15/22 [History] Dulaglutide [Trulicity] 3 mg SQ ARTHUR 06/15/22 [History] Latanoprost/Pf [Latanoprost 0.005% Eye Drop] 1 drop BOTH EYES HS 06/15/22 [History] Lidocaine 5% Patch [Lidoderm] 1 patch TOPICAL DAILY PRN 14 Days #14 patch 06/15/22 [Rx] Losartan Potassium [Cozaar] 50 mg PO DAILY 06/15/22 [History] Metoprolol Succinate (ER) [Toprol XL] 25 mg PO DAILY 06/15/22 [History] Simvastatin [Zocor] 40 mg PO HS 06/15/22 [History] Vit C/E/Zn/Coppr/Lutein/Zeaxan [Preservision Areds 2 Softgel] 1 cap PO BID 06/15/22 [History] glipiZIDE [Glucotrol] 10 mg PO BID 06/15/22 [History] ursodioL [Ursodiol] 500 mg PO HS 06/15/22 [History] ursodioL [Ursodiol] 750 mg PO DAILY 06/15/22 [History] Sennosides/Docusate Sodium [Senna Plus 8.6-50 mg Tablet] 1 each PO DAILY #20 tablet 06/16/22 [Rx] traMADol HCl [Ultram] 50 mg PO Q6H PRN #24 tab 06/16/22 [Rx] Acetaminophen Tab [Tylenol] 650 mg PO Q6HR PRN tab 06/17/22 [Rx] Aspirin 81 mg PO HS tab 06/17/22 [Rx] Follow up Appointment(s)/Referral(s): Nonstaff,Physician [REFERRING] - 1-2 days Navin Yee DO [Doctor of Osteopathic Medicine] - 2 Weeks Patient Instructions/Handouts: Aspirin (By mouth), Tramadol (By mouth), Laxative, Stimulant Combination (By mouth), Lidocaine Patch (On the skin), Pelvic Fracture (DC), Fall Prevention for Older Adults (DC) Activity/Diet/Wound Care/Special Instructions: Use Tylenol as needed for any pain, you can also uses Lidoderm patches as prescribed. Follow-up with the primary care doctor next week. Return to emergency room if any new or concerning symptoms. Orthopedic Discharge Instructions: 1. Weight-bear as tolerated with walker / cane until follow-up. 2. Ice when necessary. Do not exceed 20 minutes per hour with ice pack. 3. Pain meds and anticoagulants per prescription. 4. Pain medication has potential to cause constipation. Increase oral fluid and fiber intake. Contact primary care provider if you have not had a bowel movement within 48 hours after discharge. 5. No anti-inflammatory medication until discussed at first post operative visit, this including Motrin, Aleve, Mobic, Diclofenac. 6. Follow up in office at [address] Navin Yee. 7. Follow up with your primary care doctor 7-10 days after discharge. 8. Contact [facility] with any questions, . Discharge Disposition: TRANSFER TO SNF/ECF
[2022-06-18] MEDS ORDERED: NON FORMULARY DRUG (Alendronate Sodium [Fosamax] 35 MG Tablet) PO SCH (17:22)
== END 2022-06-17 16:25 ==
LOC: EC 13:41 → 5NMEDONC 17:09
PROVIDERS: ADMIT Internal Medicine; ATTEND Internal Medicine
DX: S32.592A Other specified fracture of left pubis, initial encounter for closed fracture (principal); S60.418A Abrasion of other finger, initial encounter; E11.9 Type 2 diabetes mellitus without complications; K57.30 Diverticulosis of large intestine without perforation or abscess without bleeding; G51.0 Bell's palsy; I25.10 Atherosclerotic heart disease of native coronary artery without angina pectoris; I10 Essential (primary) hypertension; H35.30 Unspecified macular degeneration; K80.20 Calculus of gallbladder without cholecystitis without obstruction; E66.9 Obesity, unspecified; E78.5 Hyperlipidemia, unspecified; Z68.34 Body mass index [BMI] 34.0-34.9, adult; Z79.83 Long term (current) use of bisphosphonates; Z79.899 Other long term (current) drug therapy; Z23 Encounter for immunization; Z79.4 Long term (current) use of insulin; Z79.84 Long term (current) use of oral hypoglycemic drugs; Z79.82 Long term (current) use of aspirin; Z75.1 Person awaiting admission to adequate facility elsewhere; Z94.7 Corneal transplant status; Z20.822 Contact with and (suspected) exposure to COVID-19; Z88.1 Allergy status to other antibiotic agents; Z87.891 Personal history of nicotine dependence; W01.0XXA Fall on same level from slipping, tripping and stumbling without subsequent striking against object, initial encounter; Y93.G1 Activity, food preparation and clean up; Y92.000 Kitchen of unspecified non-institutional (private) residence as the place of occurrence of the external cause
CPT/HCPCS: 96372; 99285; 97110; 97162; 97530; 97166; 80053; 83735; 84100; 85027; 83036; 87635; 72100; 73502; 72192; 73700; 90662; G0378 ×3; G0008; J1885